=== PATIENT | male | born 1930 | race African-American/Black ===

== ENCOUNTER 2019-02-08 12:44 | Observation (INO) ==
[2019-02-08] MEDS ORDERED: 0.9 % Sodium Chloride 1,000 ML IVC ONE (13:08)
[2019-02-08] MEDS ORDERED: methylPREDNISolone 125 MG/2 ML VIAL IVP ONE (13:10)
[2019-02-08] MEDS ORDERED: Famotidine 20 MG/2 ML VIAL IVP ONE (13:10)
[2019-02-08 14:37] LABS: Bilirubin,Urine Negative (Negative); Blood,Urine Negative (Negative); Clarity,Urine Clear (Clear); Color,Urine Yellow (Yellow); Glucose,Urine (UA) Normal (Normal); Ketones,Urine Negative (Negative); Leukocyte Esterase,Urine Negative (Negative); Nitrite,Urine Negative (Negative); Protein,Urine 30 mg/dL (Neg-Trace); Specific Gravity,Urine 1.019 (1.010-1.025); Urobilinogen,Urine Normal (Normal)
[2019-02-08 14:39] LABS: Bacteria,Urine None Seen per hpf (None-Few); Hyaline Casts,Urine None Seen per lpf (None-Few); RBC,Urine 0-3 per hpf (0-3); Squamous Epithelial Cell,Urine Few per lpf (None-Few); WBC,Urine 0-3 per hpf (0-3)
[2019-02-08 15:08] LABS: Basophils % 0.1 %; Eosinophils # 0.1 K/mcL (0.0-0.6); Eosinophils % 1.5 %; Hematocrit 43.2 % (37.5-50.1); Hemoglobin 14.1 g/dL (12.9-16.9); Immature Granulocytes % 0.4 % (0-4); Lymphocytes # 0.9 K/mcL (0.6-4.6); Lymphocytes % 10.5 %; Mean Corpuscular HGB Conc 32.6 g/dL (31.6-35.5); Mean Corpuscular Hemoglobin 27.9 pg (28.0-33.3); Mean Corpuscular Volume 85.4 fL (83.0-100.0); Mean Platelet Volume 10.5 fL (9.4-12.4); Monocytes # 0.5 K/mcL (0.0-1.3); Monocytes % 6.3 %; Neutrophils # 6.9 K/mcL (1.6-8.9); Platelet Count 216 K/mcL (140-400); Red Blood Count 5.06 M/mcL (4.19-5.50); Red Cell Distribution Width 13.8 % (11.5-14.5); Segmented Neutrophils % 81.2 %; White Blood Count 8.5 K/mcL (4.3-11.1)
[2019-02-08 15:13] LABS: Prothrombin Time 11.5 Seconds (9.4-12.1)
[2019-02-08 15:16] LABS: Activated Partial Thrombo Time 28.8 Seconds (26.0-36.0)
[2019-02-08 15:35] LABS: Troponin I 0.14 ng/mL (< 0.04)
[2019-02-08 15:54] LABS: Albumin 3.5 g/dL (3.5-5.7); Albumin/Globulin Ratio 1.3 (1.1-2.2); Bilirubin,Total 0.6 mg/dL (0.3-1.0); Globulin 2.7 g/dL (2.4-3.5); Magnesium 2.2 mg/dL (1.6-2.6); Potassium 3.9 mEq/L (3.5-5.1); Total Protein 6.2 g/dL (6.4-8.9)
[2019-02-08] MEDS ORDERED: Aspirin 81 MG TAB.CHEW PO ONE (16:10)
[2019-02-08] MEDS ORDERED: 0.9 % Sodium Chloride 1,000 ML IVC SCH (16:15)
[2019-02-08] MEDS ORDERED: Naloxone 0.4 MG/ML INJ IVP PRN (17:07)
[2019-02-08] MEDS ORDERED: Gadolinium Contrast Agent (WT Based) IV PRN (17:40)
[2019-02-08] MEDS ORDERED: NON-FORMULARY MEDICATION 1 EACH EACH (Alendronate Sodium [Fosamax] 70 MG) PO SCH (18:45)
[2019-02-08] MEDS: 0.9 % Sodium Chloride 1,000 ML IVC SCH (21:13)
[2019-02-09 01:09] LABS: Basophils % 0.2 %; Eosinophils % 0.2 %; Hematocrit 35.7 % (37.5-50.1); Immature Granulocytes % 0.3 % (0-4); Lymphocytes # 0.4 K/mcL (0.6-4.6); Lymphocytes % 6.8 %; Mean Corpuscular HGB Conc 34.7 g/dL (31.6-35.5); Mean Corpuscular Hemoglobin 27.8 pg (28.0-33.3); Mean Platelet Volume 10.4 fL (9.4-12.4); Monocytes # 0.1 K/mcL (0.0-1.3); Monocytes % 1.6 %; Platelet Count 191 K/mcL (140-400); Red Blood Count 4.46 M/mcL (4.19-5.50); Red Cell Distribution Width 13.6 % (11.5-14.5); Segmented Neutrophils % 90.9 %; White Blood Count 6.2 K/mcL (4.3-11.1)
[2019-02-09 01:11] LABS: Hemoglobin 12.4 g/dL (12.9-16.9); Neutrophils # 5.6 K/mcL (1.6-8.9)
[2019-02-09 01:33] LABS: Calcium 8.6 mg/dL (8.6-10.3); Potassium 3.9 mEq/L (3.5-5.1)
[2019-02-09 01:34] LABS: Creatine Kinase 393 Units/L (30-223); Lactate Dehydrogenase 206 Units/L (140-271)
[2019-02-09 01:50] LABS: Platelet Estimate Slight Decrease (Normal)
[2019-02-09] MEDS: amLODIPine 5 MG TABLET PO SCH (09:44)
[2019-02-09] MEDS: Cholecalciferol (D-3) 1,000 UNIT (25MCG) TABLET PO SCH (09:44)
[2019-02-09] MEDS: 0.9 % Sodium Chloride 1,000 ML IVC SCH (09:52)
[2019-02-09] MEDS: Sennosides/Docusate Sodium TABLET PO SCH (20:14)
[2019-02-10] MEDS: 0.9 % Sodium Chloride 1,000 ML IVC SCH ×2 (00:32→07:10)
[2019-02-10 04:01] LABS: Sodium, Urine 51.2 mEq/L
[2019-02-10 06:54] LABS: Hematocrit 35.9 % (37.5-50.1); Hemoglobin 11.7 g/dL (12.9-16.9); Mean Corpuscular HGB Conc 32.6 g/dL (31.6-35.5); Mean Corpuscular Hemoglobin 28.1 pg (28.0-33.3); Mean Platelet Volume 10.3 fL (9.4-12.4); Platelet Count 181 K/mcL (140-400); Red Blood Count 4.17 M/mcL (4.19-5.50); Red Cell Distribution Width 13.3 % (11.5-14.5)
[2019-02-10 06:55] LABS: Mean Corpuscular Volume 86.1 fL (83.0-100.0)
[2019-02-10] MEDS: Sennosides/Docusate Sodium TABLET PO SCH (07:10)
[2019-02-10] MEDS: Cholecalciferol (D-3) 1,000 UNIT (25MCG) TABLET PO SCH (07:10)
[2019-02-10] MEDS: amLODIPine 5 MG TABLET PO SCH (07:10)
[2019-02-10 07:21] LABS: BUN/Creatinine Ratio 30 (6-26); Blood Urea Nitrogen 32 mg/dL (8-23); Calcium 8.1 mg/dL (8.6-10.3); Carbon Dioxide 19 mEq/L (23-29); Chloride 107 mEq/L (98-107); Glucose 99 mg/dL (70-105); Magnesium 1.9 mg/dL (1.6-2.6); Osmolality,Calculated 291 (280-300); Potassium 3.6 mEq/L (3.5-5.1); Sodium 137 mEq/L (136-145); eGFR For African Americans > 60 (> 60); eGFR For Non-African Americans > 60 (> 60)
[2019-02-10 07:55] VITALS: BP 184/42
== END 2019-02-10 12:37 | disposition home or self-care (01) ==
LOC: EMEROOARM 12:44 → 3BNU 12:44 → SUATTDRO 17:48 → 3BNU 18:14
PROVIDERS: ADMIT Internal Medicine; ATTEND Internal Medicine